=== PATIENT | female | born 1935 | race Caucasian/White ===

== ENCOUNTER 2020-11-20 06:47 | Inpatient (IN) | payer MEDICARE, BC ==
[2020-11-20] MEDS ORDERED: Ondansetron 4 MG/2 ML SDV ONE (07:19)
[2020-11-20] MEDS ORDERED: Ondansetron 4 MG/2 ML SDV IVPUSH ONE (07:22)
--- NOTE | 2020-11-20 07:28 | EDM.PDOC ---
ED HPI GENERAL MEDICAL PROBLEM - General Chief Complaint: Abdominal Pain Stated Complaint: ABD PAIN VIA [facility] Time Seen by Provider: 11/20/20 07:15 Source of Information: Reports: Patient, Old Records, RN History Limitations: Reports: No Limitations - History of Present Illness INITIAL COMMENTS - FREE TEXT/NARRATIVE: 85 yo female arrives via EMS for diarrhea and vomiting. She took a Dulcolax last early evening due to no BM since last Monday. When she had not had any results by bedtime she took another dose. In the middle of the night she had a large hard stool that was not associated with pain or bleeding. This sectionizer she developed several episodes of small volume vomiting and diarrhea that looks like it may have blood in it. She did eat chili for supper last night and thought the stool looked like it did due to the chili. There has not been a fever. She had severe cramping with her diarrhea this morning so took a dose of dicyclomine. Has a pHx of both colitis and hemorrhoids. Onset: Today Onset Date: 11/20/20 Duration: Hour(s): Location: Reports: Abdomen Quality: Reports: Other (cramping) Severity: Moderate Improves with: Reports: Other (? time) Worsens with: Reports: None Context: Reports: Other (See HPI) Associated Symptoms: Reports: Nausea/Vomiting. Denies: Fever/Chills Treatments BACTERIOLOGIST DAIRY: Reports: Other (see below) (dicyclomine) - Related Data Allergies Allergy/AdvReac Type Severity Reaction Status Date / Time ciprofloxacin Allergy Itching Verified 11/20/20 08:08 Penicillins Allergy Rash Verified 11/20/20 08:08 sulfamethoxazole Allergy Nausea Verified 11/20/20 08:08 [From Bactrim] trimethoprim [From Bactrim] Allergy Nausea Verified 11/20/20 08:08 Home Meds: Home Meds Chondroitin/Glucosamine [Glucosamine-Chondroitin] 1 cap PO DAILY 03/08/14 [History] Diclofenac Sodium [Voltaren] 75 mg PO BID 03/08/14 [History] Levothyroxine 112 mcg PO DAILY 03/08/14 [History] Lisinopril 20 mg PO BID 03/08/14 [History] Lutein/Minerals/Vit A,C & E [Ocuvite] 1 tab PO DAILY 03/08/14 [History] Omeprazole [Prilosec] 20 mg PO BID 03/08/14 [History] Pravastatin [Pravachol] 10 mg PO DAILY 03/08/14 [History] Acetaminophen [Tylenol] 1 tab PO ASDIRECTED 01/05/16 [History] Acetaminophen/Diphenhydramine [Tylenol Pm Ex-Strength Caplet] 1 tab PO BEDTIME PRN 01/05/16 [History] Acetaminophen/HYDROcodone [[place] 325-5 MG] 1 tab PO ASDIRECTED 01/05/16 [History] Acetaminophen/HYDROcodone [[place] 325-5 MG] 1 tab PO Q4H PRN #20 tablet 01/08/16 [Rx] metroNIDAZOLE [Flagyl] 250 mg PO TID #27 tablet 01/08/16 [Rx] Past Medical History HEENT History: Reports: Cataract, Impaired Vision Cardiovascular History: Reports: High Cholesterol, Hypertension Gastrointestinal History: Reports: GERD, Other (See Below) Other Gastrointestinal History: esophageal spasm Genitourinary History: Reports: Urinary Incontinence, UTI, Recurrent Musculoskeletal History: Reports: Back Pain, Chronic, Osteoarthritis Psychiatric History: Reports: Anxiety Endocrine/Metabolic History: Reports: Hypothyroidism Hematologic History: Reports: Blood Transfusion(s) - Infectious Disease History Infectious Disease History: Reports: Chicken Pox, Measles, Mumps, Other (See Below) Other Infectious Disease History: polio - Past Surgical History HEENT Surgical History: Reports: Cataract Surgery GI Surgical History: Reports: Appendectomy, Colonoscopy, Other (See Below) Musculoskeletal Surgical History: Reports: Knee Replacement ED ROS GENERAL - Review of Systems Review Of Systems: See Below Constitutional: Reports: No Symptoms HEENT: Reports: No Symptoms Respiratory: Reports: No Symptoms Cardiovascular: Reports: No Symptoms GI/Abdominal: Reports: Abdominal Pain (cramps), Bloody Stool (possibly?), Diarrhea (this morning x more than one), Nausea, Vomiting. Denies: Distension, Hematemesis : Reports: No Symptoms Musculoskeletal: Reports: No Symptoms Skin: Reports: No Symptoms Neurological: Reports: No Symptoms ED EXAM, GI/ABD - Physical Exam Exam: See Below Exam Limited By: No Limitations General Appearance: Alert, WD/WN, Mild Distress Eyes: Bilateral: Normal Appearance Ears: Normal External Exam, Normal Canal, Hearing Grossly Normal Nose: Normal Inspection, No Blood Throat/Mouth: Normal Inspection, Normal Lips, Normal Oropharynx, Normal Voice, No Airway Compromise Head: Atraumatic, Normocephalic Neck: Normal Inspection Respiratory/Chest: No Respiratory Distress, Lungs Clear, Normal Breath Sounds, No Accessory Muscle Use Cardiovascular: Regular Rate, Rhythm, No Edema GI/Abdominal Exam: Normal Bowel Sounds, Soft, Non-Tender, No Distention Back Exam: Normal Inspection Extremities: Normal Inspection, Normal Range of Motion, Non-Tender, No Pedal Edema Neurological: Alert, Oriented, CN II-XII Intact, Normal Cognition, No Motor/Sensory Deficits Psychiatric: Normal Affect, Normal Mood Skin Exam: Warm, Dry, Intact, Normal Color, No Rash Course - Vital Signs Text/Narrative:: Dr. Rodriguez called @ 0817h Last Recorded V/S: Last Vital Signs Temp 36.3 C 11/20/20 07:50 Pulse 57 L 11/20/20 07:50 Resp 14 11/20/20 07:50 BP 117/47 L 11/20/20 07:50 Pulse Ox 98 11/20/20 07:50 - Orders/Labs/Meds Orders: Active Orders 24 hr Category Date Time Status Lactated Ringers [Ringers, Lactated] 1,000 ml Med 11/20/20 07:30 Active IV ASDIRECTED Medication Orders Lactated Ringer's (Ringers, Lactated) 1,000 mls @ 500 mls/hr IV ASDIRECTED RAFFI Last Admin: 11/20/20 07:55 Dose: 500 mls/hr Documented by: URIAH Labs: Laboratory Tests 11/20/20 11/20/20 Range/Units 07:30 07:30 WBC 10.4 (4.5-11.0) K/uL RBC 4.91 (3.30-5.50) M/uL Hgb 14.4 D (12.0-15.0) g/dL Hct 45.0 (36.0-48.0) % MCV 92 (80-98) fL MCH 29 (27-31) pg MCHC 32 (32-36) % Plt Count 358 (150-400) K/uL Sodium 140 (140-148) mmol/L Potassium 3.6 (3.6-5.2) mmol/L Chloride 101 (100-108) mmol/L Carbon Dioxide 26 (21-32) mmol/L Anion Gap 13.4 (5.0-14.0) mmol/L BUN 19 H D (7-18) mg/dL Creatinine 1.3 H D (0.6-1.0) mg/dL Est Cr Clr Drug Dosing 27.12 mL/min Estimated GFR (MDRD) 39 L (>60) Glucose 103 (74-106) mg/dL Calcium 10.5 H D (8.5-10.1) mg/dL Meds: Medications Generic Name Dose Route Start Last Admin Trade Name Freq PRN Reason Stop Dose Admin Lactated Ringer's 1,000 mls @ 500 mls/hr 11/20/20 07:30 11/20/20 07:55 Ringers, Lactated IV 500 mls/hr ASDIRECTED RAFFI Administration Discontinued Medications Generic Name Dose Route Start Last Admin Trade Name Freq PRN Reason Stop Dose Admin Hydromorphone HCl 0.5 mg 11/20/20 08:09 Hydromorphone 0.5 Mg/0.5 Ml Syringe IVPUSH 11/20/20 08:10 ONETIME ONE Ondansetron HCl Confirm 11/20/20 07:19 Ondansetron 4 Mg/2 Ml Sdv Administered 11/20/20 07:20 Dose 4 mg .ROUTE .STK-MED ONE Ondansetron HCl 4 mg 11/20/20 07:22 11/20/20 07:55 Ondansetron 4 Mg/2 Ml Sdv IVPUSH 11/20/20 07:23 4 mg ONETIME ONE Administration Departure - Departure Time of Disposition: 08:35 Disposition: Admitted As Inpatient 68 Condition: Fair Clinical Impression: Nausea vomiting and diarrhea, Bloody diarrhea, Abdominal cramping - Discharge Information *PRESCRIPTION DRUG MONITORING PROGRAM REVIEWED*: No *COPY OF PRESCRIPTION DRUG MONITORING REPORT IN PATIENT NANDA: No Referrals: PCP,None [Primary Care Provider] - Forms: ED Department Discharge Sepsis Event Note (ED) - Focused Exam Vital Signs: Vital Signs Temp Pulse Resp BP Pulse Ox 11/20/20 07:50 36.3 C 57 L 14 117/47 L 98 - My Orders Last 24 Hours: My Active Orders 11/20/20 07:30 Lactated Ringers [Ringers, Lactated] 1,000 ml IV ASDIRECTED - Assessment/Plan Last 24 Hours: My Active Orders 11/20/20 07:30 Lactated Ringers [Ringers, Lactated] 1,000 ml IV ASDIRECTED
[2020-11-20] MEDS ORDERED: Lactated Ringers 1,000 ML IV SCH (07:30)
[2020-11-20] MEDS ORDERED: HYDROmorphone 0.5 MG/0.5 ML Syringe IVPUSH ONE (08:09)
[2020-11-20] MEDS ORDERED: Meropenem 1 GM in Sodium Chloride 0.9% 100 ML IV SCH (09:00)
--- NOTE | 2020-11-20 09:11 | PCM.HP.2 ---
H&P History of Present Illness - General Date of Service: 11/20/20 Admit Problem/Dx: Admission Diagnosis/Problem Admission Diagnosis/Problem Colitis Source of Information: Patient, Family, Old Records, Provider, RN Notes Reviewed History Limitations: Reports: No Limitations - History of Present Illness Initial Comments - Free Text/Narative: Ms. Brown is an 85-year-old woman who was admitted through the emergency department with abrupt onset of cramping abdominal pain and bloody diarrhea. She had recent difficulty with constipation and did take Dulcolax in the evening prior to the onset of her symptoms. She awoke during the transactional attorney hours with cramping abdominal pain and immediately had bloody diarrhea. She presented to the emergency department this morning, labs are within desired range and vital signs stable. She has had one more bloody stool since arriving in the emergency department. She had a similar episode approximately 5 to 6 years ago that was felt to be related to infectious colitis. Colonoscopy at that time showed no evidence of ischemic colitis and symptoms resolved with antibiotic therapy. CT scan was obtained and shows evidence of pancolitis. 4 Pain Score (Numeric/FACES): 4 - Related Data Allergies/Adverse Reactions: Allergies Allergy/AdvReac Type Severity Reaction Status Date / Time ciprofloxacin Allergy Itching Verified 11/20/20 08:08 Penicillins Allergy Rash Verified 11/20/20 08:08 sulfamethoxazole Allergy Nausea Verified 11/20/20 08:08 [From Bactrim] trimethoprim [From Bactrim] Allergy Nausea Verified 11/20/20 08:08 Home Medications: Home Meds Chondroitin/Glucosamine [Glucosamine-Chondroitin] 1 cap PO DAILY 03/08/14 [History] Levothyroxine 100 mcg PO DAILY 03/08/14 [History] Lisinopril 40 mg PO DAILY 03/08/14 [History] Lutein/Minerals/Vit A,C & E [Ocuvite] 1 tab PO DAILY 03/08/14 [History] Omeprazole [Prilosec] 20 mg PO BID 03/08/14 [History] Pravastatin [Pravachol] 10 mg PO DAILY 03/08/14 [History] Acetaminophen [Tylenol] 1 tab PO ASDIRECTED 01/05/16 [History] Acetaminophen/Diphenhydramine [Tylenol Pm Ex-Strength Caplet] 1 tab PO BEDTIME PRN 01/05/16 [History] Aspirin [Lo-Dose Aspirin EC] 1 tab PO DAILY 11/20/20 [History] Dicyclomine [Bentyl] 1 tab PO QID PRN 11/20/20 [History] LORazepam [Ativan] 1 tab PO DAILY PRN 11/20/20 [History] hydrOXYzine HCL [hydrOXYzine] 1 tab PO TID PRN 11/20/20 [History] hydroCHLOROthiazide [Hydrochlorothiazide] 1 tab PO DAILY 11/20/20 [History] Past Medical History HEENT History: Reports: Cataract, Impaired Vision Cardiovascular History: Reports: High Cholesterol, Hypertension Gastrointestinal History: Reports: GERD, Other (See Below) Other Gastrointestinal History: esophageal spasm Genitourinary History: Reports: Urinary Incontinence, UTI, Recurrent Musculoskeletal History: Reports: Back Pain, Chronic, Osteoarthritis Psychiatric History: Reports: Anxiety Endocrine/Metabolic History: Reports: Hypothyroidism Hematologic History: Reports: Blood Transfusion(s) - Infectious Disease History Infectious Disease History: Reports: Chicken Pox, Measles, Mumps, Other (See Below) Other Infectious Disease History: polio - Past Surgical History HEENT Surgical History: Reports: Cataract Surgery GI Surgical History: Reports: Appendectomy, Colonoscopy, Other (See Below) Other GI Surgeries/Procedures: hemrrhoidectomy 25 years ago Female Surgical History: Reports: Hysterectomy Musculoskeletal Surgical History: Reports: Knee Replacement Social & Family History - Tobacco Use Tobacco Use Status *Q: Never Tobacco User H&P Review of Systems - Review of Systems: Review Of Systems: See Below General: Reports: No Symptoms HEENT: Reports: No Symptoms Pulmonary: Reports: No Symptoms Cardiovascular: Reports: No Symptoms Gastrointestinal: Reports: Abdominal Pain, Diarrhea, Hematochezia, Nausea, Vomiting. Denies: Distension Genitourinary: Reports: No Symptoms Musculoskeletal: Reports: No Symptoms Skin: Reports: No Symptoms Psychiatric: Reports: No Symptoms Neurological: Reports: No Symptoms Hematologic/Lymphatic: Reports: No Symptoms Immunologic: Reports: No Symptoms Exam - Exam Exam: See Below - Vital Signs Vital Signs: Last Vital Signs Temp 97.3 F 11/20/20 07:50 Pulse 57 L 11/20/20 07:50 Resp 14 11/20/20 07:50 BP 117/47 L 11/20/20 07:50 Pulse Ox 98 11/20/20 07:50 Weight: 157 lb - Exam Quality Assessment: DVT Prophylaxis General: Alert, Oriented, Cooperative, Mild Distress HEENT: Conjunctiva Clear, Hearing Intact, Mucosa Moist & [place], Normal Nasal Septum, Posterior Pharynx Clear, Pupils Equal Neck: Supple, Trachea Midline, +2 Carotid Pulse wo Bruit Lungs: Clear to Auscultation, Normal Respiratory Effort Cardiovascular: Regular Rate, Regular Rhythm, Normal S1, Normal S2. No: Systolic Murmur, Diastolic Murmur GI/Abdominal Exam: Soft, No Organomegaly, Tender. No: Distended, Guarding, Rigid, Rebound Back Exam: Normal Inspection, Full Range of Motion Extremities: Non-Tender, No Pedal Edema Skin: Warm, Dry, Intact Neurological: Cranial Nerves Intact, Strength Equal Bilateral, Normal Speech, Normal Tone, Sensation Intact. No: Focal Deficit Neuro Extensive - Mental Status: Alert, Oriented x3, Normal Mood/Affect, Normal Cognition, Memory Intact - Patient Data Lab Results Last 24 hrs: Laboratory Results - last 24 hr 11/20/20 11/20/20 Range/Units 07:30 07:30 WBC 10.4 (4.5-11.0) K/uL RBC 4.91 (3.30-5.50) M/uL Hgb 14.4 D (12.0-15.0) g/dL Hct 45.0 (36.0-48.0) % MCV 92 (80-98) fL MCH 29 (27-31) pg MCHC 32 (32-36) % Plt Count 358 (150-400) K/uL Sodium 140 (140-148) mmol/L Potassium 3.6 (3.6-5.2) mmol/L Chloride 101 (100-108) mmol/L Carbon Dioxide 26 (21-32) mmol/L Anion Gap 13.4 (5.0-14.0) mmol/L BUN 19 H D (7-18) mg/dL Creatinine 1.3 H D (0.6-1.0) mg/dL Est Cr Clr Drug Dosing 27.12 mL/min Estimated GFR (MDRD) 39 L (>60) Glucose 103 (74-106) mg/dL Calcium 10.5 H D (8.5-10.1) mg/dL Result Diagrams: 11/21/20 05:30 11/21/20 05:30 Chas Results Last 24 hrs: Microbiology 11/20/20 08:13 Stool Occult Blood (CHAS) - Final Stool / Feces - Stool, Liquid Sepsis Event Note - Evaluation Sepsis Screening Result: No Definite Risk - Focused Exam Vital Signs: Vital Signs Temp Pulse Resp BP Pulse Ox 11/20/20 07:50 97.3 F 57 L 14 117/47 L 98 *Q Meaningful Use (ADM) - VTE *Q VTE Pharmacological Contraindications *Q: Active Hemorrhage - VTE Risk Assess *Q Each Risk Factor Represents 1 Point: None Total Score 1 Point Risk Factors: 0 Each Risk Factor Represents 2 Points: None Total Score 2 Point Risk Factors: 0 Each Risk Factor Represents 3 Points: Age 75 Years or Greater Total Score 3 Point Risk Factors: 3 Each Risk Factor Represents 5 Points: None Total Score 5 Point Risk Factors: 0 Venous Thromboembolism Risk Factor Score *Q: 3 Problem List Initiated/Reviewed/Updated: Yes Orders Last 24hrs: Active Orders 24 hr Category Date Time Status Patient Status Manage Transfer [TRANSFER] Routine ADT 11/20/20 08:57 Active Abdomen Pelvis w Cont [CT] Stat Exams 11/20/20 08:53 Ordered Lactated Ringers [Ringers, Lactated] 1,000 ml Med 11/20/20 07:30 Active IV ASDIRECTED Meropenem [Merrem] 1 gm Med 11/20/20 09:00 Active Sodium Chloride 0.9% [Normal Saline] 100 ml IV Q8H Resuscitation Status Routine Resus Stat 11/20/20 08:59 Ordered Medication Orders Lactated Ringer's (Ringers, Lactated) 1,000 mls @ 500 mls/hr IV ASDIRECTED RAFFI Last Admin: 11/20/20 07:55 Dose: 500 mls/hr Documented by: URIAH Meropenem 1 gm/ Sodium (Chloride) 100 mls @ 200 mls/hr IV Q8H [facility] Assessment/Plan Comment:: ASSESSMENT AND PLAN COLITIS-likely infectious in nature, no evidence of ischemic colitis at the present time. Associated with cramping abdominal pain and bloody diarrhea. Similar episode 5 to 6 years ago that resolved with antibiotic therapy. -N.p.o. -IV fluids for hydration -IV meropenem, she has allergies to penicillins and Cipro HYPOTHYROIDISM -Continue outpatient thyroid replacement HYPERTENSION -Monitor blood pressure during hospital stay -Continue outpatient antihypertensive therapy MAINTENANCE ISSUES -DVT prophylaxis; SCUDs, hold on anticoagulation because of bleeding -GI prophylaxis; not indicated -Chapa catheter; not indicated -Nutrition; n.p.o. -Nicotine dependence; not required CODE STATUS-FULL CODE ADMISSION STATUS-patient will be admitted to inpatient status, expect at least a 2 night hospital stay for evaluation and management of problems as outlined above. At the time of this admission I do not reasonably expected evaluation and management of this problem will require more than a 96 hour hospital stay. DISPOSITION-anticipate discharge to home after the hospital stay. - Mortality Measure Prognosis:: Good
[2020-11-20] MEDS ORDERED: Iopamidol 612 MG/ML 100 ML Bottle IV PRN (09:23)
[2020-11-20] MEDS ORDERED: Sodium Chloride 0.9% 10 ML Syringe FLUSH PRN ×2 (09:23→10:59)
--- NOTE | 2020-11-20 09:45 | CT ---
Abdomen Pelvis w Cont CLINICAL HISTORY: Cramping, abdominal pain, bloody diarrhea COMPARISON: None. TECHNIQUE: Transverse scans were obtained from the base of the lungs to the pubic symphysis following oral contrast and IV infusion of contrast.Auto dosage reduction and iterative reconstructiontechniques employed. FINDINGS: There is diffuse mucosal thickening and some enhancement through out the colon from cecum to rectum. There is some mild fat stranding around some segments. Small intestinal configuration is nonacute The lung bases are clear. The liver contains a 2.2 x 2.0 x 1.5 cm slightly heterogeneous fairly well-demarcated low-attenuation lesion in the right lobe. There may be some minimal peripheral enhancement. The gallbladder has a normal appearance. The spleen has normal size and shape. The pancreas shows no mass or inflammatory change. The adrenal glands appear normal bilaterally . The kidneys show no mass, stones or hydronephrosis. There is a 1.3 x 1.0 cm cyst in the lower pole. The ureters have a normal course and caliber. The aorta shows some minimal calcified plaque without aneurysm. There is no suspicious retroperitoneal adenopathy. IMPRESSION: Moderate waite colitis 2.2 x 2.0 x 1.5 cm slightly irregular lesion in the right lobe of the liver. This may represent a hemangioma. Liver ultrasound is recommended for further characterization.
[2020-11-20] MEDS ORDERED: LORazepam 0.5 MG Tab PO PRN (10:59)
[2020-11-20] MEDS ORDERED: Ondansetron 4 MG/2 ML SDV IV PRN (10:59)
[2020-11-20] MEDS: Sodium Chloride 0.9% 1,000 ML IV SCH ×2 (11:10→19:23)
[2020-11-20] MEDS ORDERED: Lisinopril 20 MG Tab PO SCH ×2 (12:00→21:00)
[2020-11-20] MEDS: Pravastatin 20 MG Tab PO SCH (14:30)
[2020-11-20] MEDS: Pantoprazole 40 MG Tab.CR PO SCH (14:30)
[2020-11-20] MEDS: Levothyroxine 100 MCG Tab PO SCH (14:30)
[2020-11-20] MEDS: HYDROmorphone 0.5 MG/0.5 ML Syringe IVPUSH PRN ×2 (14:32→21:32)
[2020-11-20] MEDS: Acetaminophen 325 MG Tab PO PRN (17:27)
[2020-11-20] MEDS: Meropenem 1 GM in Sodium Chloride 0.9% 100 ML IV SCH (21:26)
[2020-11-21] MEDS: Sodium Chloride 0.9% 1,000 ML IV SCH (03:41)
[2020-11-21] MEDS: Levothyroxine 100 MCG Tab PO SCH (03:43)
[2020-11-21] MEDS: Acetaminophen 325 MG Tab PO PRN ×2 (07:12→21:31)
[2020-11-21] MEDS: Pantoprazole 40 MG Tab.CR PO SCH (07:28)
[2020-11-21] MEDS: Lisinopril 20 MG Tab PO SCH (08:31)
[2020-11-21] MEDS: Pravastatin 20 MG Tab PO SCH (08:31)
[2020-11-21] MEDS: Meropenem 1 GM in Sodium Chloride 0.9% 100 ML IV SCH ×2 (08:32→21:25)
[2020-11-21] MEDS: Magnesium Oxide 400 MG Tab PO SCH ×2 (09:57→21:27)
[2020-11-21] MEDS: Magnesium Sulfate/Water 2 GM in Premix Bag 1 BAG IV SCH ×2 (09:57→15:26)
[2020-11-21] MEDS ORDERED: Sodium Chloride 0.9% 1,000 ML IV SCH (11:15)
--- NOTE | 2020-11-21 12:51 | PCM.PN ---
- General Info Date of Service: 11/21/20 Subjective Update: Ms. Brown is continued to experience bloody diarrhea through the night and this morning. Vital signs have remained stable and she has been afebrile. Abdominal pain significantly improved from yesterday. Nausea and vomiting have resolved. Functional Status: Reports: Tolerating Diet, Ambulating, Urinating - Review of Systems General: Reports: No Symptoms Pulmonary: Reports: No Symptoms Cardiovascular: Reports: No Symptoms Gastrointestinal: Reports: Diarrhea, Hematochezia. Denies: Abdominal Pain, Difficulty Swallowing, Nausea, Vomiting Genitourinary: Reports: No Symptoms - Patient Data Vitals - Most Recent: Last Vital Signs Temp 97.3 F 11/21/20 07:33 Pulse 78 11/21/20 07:33 Resp 16 11/21/20 07:33 BP 148/63 H 11/21/20 08:31 Pulse Ox 95 11/21/20 07:33 Weight - Most Recent: 157 lb I&O - Last 24 Hours: Intake & Output 11/20/20 11/21/20 11/21/20 22:59 06:59 14:59 Intake Total 922 837 380 Output Total 200 100 Balance 922 637 280 Lab Results Last 24 Hours: Laboratory Results - last 24 hr 11/21/20 11/21/20 Range/Units 05:30 05:30 WBC 10.6 (4.5-11.0) K/uL RBC 4.06 (3.30-5.50) M/uL Hgb 11.9 L D (12.0-15.0) g/dL Hct 37.2 (36.0-48.0) % MCV 92 (80-98) fL MCH 29 (27-31) pg MCHC 32 (32-36) % Plt Count 319 (150-400) K/uL Neut % (Auto) 82 H (36-66) % Lymph % (Auto) 9 L (24-44) % [place] % (Auto) 9 H (2-6) % Eos % (Auto) 0 L (2-4) % Baso % (Auto) 0 (0-1) % Sodium 140 (140-148) mmol/L Potassium 4.0 (3.6-5.2) mmol/L Chloride 104 (100-108) mmol/L Carbon Dioxide 26 (21-32) mmol/L Anion Gap 10.0 (5.0-14.0) mmol/L BUN 12 (7-18) mg/dL Creatinine 1.0 (0.6-1.0) mg/dL Est Cr Clr Drug Dosing 35.26 mL/min Estimated GFR (MDRD) 53 L (>60) Glucose 122 H (74-106) mg/dL Calcium 8.6 D (8.5-10.1) mg/dL Magnesium 1.6 L (1.8-2.4) mg/dL Total Bilirubin 0.5 (0.2-1.0) mg/dL AST 24 (15-37) U/L ALT 31 (12-78) U/L Alkaline Phosphatase 63 (46-116) U/L Total Protein 6.1 L (6.4-8.2) g/dL Albumin 3.0 L (3.4-5.0) g/dL Globulin 3.1 (2.3-3.5) g/dL Albumin/Globulin Ratio 1.0 L (1.2-2.2) Chas Results Last 24 Hours: Microbiology 11/20/20 08:13 Stool Occult Blood (CHAS) - Final Stool / Feces - Stool, Liquid Med Orders - Current: Current Medications Acetaminophen (Acetaminophen 325 Mg Tab) 650 mg PO Q4H PRN PRN Reason: Pain (Mild 1-3)/fever Last Admin: 11/21/20 07:12 Dose: 650 mg Documented by: Hydromorphone HCl (Hydromorphone 0.5 Mg/0.5 Ml Syringe) 0.5 mg IVPUSH Q2H PRN PRN Reason: Pain Last Admin: 11/20/20 21:32 Dose: 0.5 mg Documented by: Meropenem 1 gm/ Sodium (Chloride) 100 mls @ 200 mls/hr IV Q12H [facility] Last Admin: 11/21/20 08:32 Dose: 200 mls/hr Documented by: Magnesium Sulfate 2 gm/ Premix 50 mls @ 25 mls/hr IV Q6H [facility] Stop: 11/21/20 17:59 Last Admin: 11/21/20 09:57 Dose: 25 mls/hr Documented by: Sodium Chloride (Normal Saline) 1,000 mls @ 50 mls/hr IV ASDIRECTED [facility] Levothyroxine Sodium (Levothyroxine 100 Mcg Tab) 100 mcg PO DAILY@0300 [facility] Lisinopril (Lisinopril 20 Mg Tab) 40 mg PO DAILY [facility] Last Admin: 11/21/20 08:31 Dose: 40 mg Documented by: Lorazepam (Lorazepam 0.5 Mg Tab) 0.5 mg PO Q4H PRN PRN Reason: Anxiety Magnesium Oxide (Magnesium Oxide 400 Mg Tab) 400 mg PO BID [facility] Last Admin: 11/21/20 09:57 Dose: 400 mg Documented by: Ondansetron HCl (Ondansetron 4 Mg/2 Ml Sdv) 4 mg IV Q4H PRN PRN Reason: Nausea/Vomiting Pantoprazole Sodium (Pantoprazole 40 Mg Tab.Cr) 40 mg PO ACBREAKFAST [facility] Last Admin: 11/21/20 07:28 Dose: 40 mg Documented by: Pravastatin Sodium (Pravastatin 20 Mg Tab) 10 mg PO DAILY [facility] Last Admin: 11/21/20 08:31 Dose: 10 mg Documented by: Sodium Chloride (Sodium Chloride 0.9% 10 Ml Syringe) 10 ml FLUSH ASDIRECTED PRN PRN Reason: Keep Vein Open Discontinued Medications Hydromorphone HCl (Hydromorphone 0.5 Mg/0.5 Ml Syringe) 0.5 mg IVPUSH ONETIME ONE Stop: 11/20/20 08:10 Last Admin: 11/20/20 09:34 Dose: 0.5 mg Documented by: Lactated Ringer's (Ringers, Lactated) 1,000 mls @ 500 mls/hr IV ASDIRECTED [facility] Last Admin: 11/20/20 07:55 Dose: 500 mls/hr Documented by: Meropenem 1 gm/ Sodium (Chloride) 100 mls @ 200 mls/hr IV Q8H [facility] Last Admin: 11/20/20 09:34 Dose: 200 mls/hr Documented by: Sodium Chloride (Normal Saline) 70 mls @ 3 mls/sec IV ONETIME ONE Stop: 11/20/20 09:24 Last Admin: 11/20/20 09:30 Dose: 3 mls/sec Documented by: Sodium Chloride (Normal Saline) 1,000 mls @ 125 mls/hr IV ASDIRECTED [facility] Last Admin: 11/21/20 03:41 Dose: 125 mls/hr Documented by: Iopamidol (Iopamidol 612 Mg/Ml 100 Ml Bottle) 100 ml IV . DIRECTED PRN PRN Reason: RADIOLOGY EXAM Last Admin: 11/20/20 09:31 Dose: 100 ml Documented by: Levothyroxine Sodium (Levothyroxine 100 Mcg Tab) 100 mcg PO DAILY@0730 [facility] Last Admin: 11/21/20 03:43 Dose: 100 mcg Documented by: Lisinopril (Lisinopril 20 Mg Tab) 20 mg PO BID [facility] Last Admin: 11/20/20 16:25 Dose: Not Given Documented by: Ondansetron HCl (Ondansetron 4 Mg/2 Ml Sdv) Confirm Administered Dose 4 mg .ROUTE .STK-MED ONE Stop: 11/20/20 07:20 Last Admin: 11/20/20 16:25 Dose: Not Given Documented by: Ondansetron HCl (Ondansetron 4 Mg/2 Ml Sdv) 4 mg IVPUSH ONETIME ONE Stop: 11/20/20 07:23 Last Admin: 11/20/20 07:55 Dose: 4 mg Documented by: Sodium Chloride (Sodium Chloride 0.9% 10 Ml Syringe) 10 ml FLUSH ONETIME PRN PRN Reason: PER RADIOLOGY PROTOCOL Last Admin: 11/20/20 09:30 Dose: 10 ml Documented by: - Exam Quality Assessment: DVT Prophylaxis General: Alert, Oriented, Cooperative, Mild Distress Lungs: Clear to Auscultation, Normal Respiratory Effort Cardiovascular: Regular Rate, Regular Rhythm, No Murmurs GI/Abdominal Exam: Soft, Non-Tender, No Organomegaly, No Distention Extremities: Non-Tender, No Pedal Edema - Patient Data Lab Results Last 24 hrs: Laboratory Results - last 24 hr 11/21/20 11/21/20 Range/Units 05:30 05:30 WBC 10.6 (4.5-11.0) K/uL RBC 4.06 (3.30-5.50) M/uL Hgb 11.9 L D (12.0-15.0) g/dL Hct 37.2 (36.0-48.0) % MCV 92 (80-98) fL MCH 29 (27-31) pg MCHC 32 (32-36) % Plt Count 319 (150-400) K/uL Neut % (Auto) 82 H (36-66) % Lymph % (Auto) 9 L (24-44) % [place] % (Auto) 9 H (2-6) % Eos % (Auto) 0 L (2-4) % Baso % (Auto) 0 (0-1) % Sodium 140 (140-148) mmol/L Potassium 4.0 (3.6-5.2) mmol/L Chloride 104 (100-108) mmol/L Carbon Dioxide 26 (21-32) mmol/L Anion Gap 10.0 (5.0-14.0) mmol/L BUN 12 (7-18) mg/dL Creatinine 1.0 (0.6-1.0) mg/dL Est Cr Clr Drug Dosing 35.26 mL/min Estimated GFR (MDRD) 53 L (>60) Glucose 122 H (74-106) mg/dL Calcium 8.6 D (8.5-10.1) mg/dL Magnesium 1.6 L (1.8-2.4) mg/dL Total Bilirubin 0.5 (0.2-1.0) mg/dL AST 24 (15-37) U/L ALT 31 (12-78) U/L Alkaline Phosphatase 63 (46-116) U/L Total Protein 6.1 L (6.4-8.2) g/dL Albumin 3.0 L (3.4-5.0) g/dL Globulin 3.1 (2.3-3.5) g/dL Albumin/Globulin Ratio 1.0 L (1.2-2.2) Result Diagrams: 11/21/20 05:30 11/21/20 05:30 Chas Results Last 24 hrs: Microbiology 11/20/20 08:13 Stool Occult Blood (CHAS) - Final Stool / Feces - Stool, Liquid Sepsis Event Note - Evaluation Sepsis Screening Result: No Definite Risk - Focused Exam Vital Signs: Vital Signs Temp Pulse Resp BP BP Pulse Ox 11/21/20 08:31 148/63 H 11/21/20 07:33 97.3 F 78 16 148/63 H 95 11/21/20 05:33 97.3 F 78 16 149/67 H 98 - Problem List Review Problem List Initiated/Reviewed/Updated: Yes - My Orders Last 24 Hours: My Active Orders 11/20/20 12:00 Pantoprazole [ProTONIX] 40 mg PO ACBREAKFAST Pravastatin [Pravachol] 10 mg PO DAILY 11/20/20 21:00 Meropenem [Merrem] 1 gm Sodium Chloride 0.9% [Normal Saline] 100 ml IV Q12H 11/21/20 Breakfast Clear Liquid Diet [DIET] 11/21/20 09:00 Magnesium Oxide 400 mg PO BID lisinopriL [Prinivil] 40 mg PO DAILY 11/21/20 10:00 Magnesium Sulfate/Water [Magnesium Sulfate in Water 2 GM/50 ML] 2 gm Premix Bag 1 bag IV Q6H 11/21/20 11:15 Sodium Chloride 0.9% [Normal Saline] 1,000 ml IV ASDIRECTED 11/22/20 03:00 Levothyroxine [Synthroid] 100 mcg PO DAILY@0300 11/22/20 05:00 BASIC METABOLIC PANEL,BMP [CHEM] Timed CBC WITH AUTO DIFF [HEME] Timed MAGNESIUM [CHEM] Timed - Plan Plan:: ASSESSMENT AND PLAN COLITIS-likely infectious in nature, no evidence of ischemic colitis at the present time. Associated with cramping abdominal pain and bloody diarrhea. Similar episode 5 to 6 years ago that resolved with antibiotic therapy. -Clear liquid diet -IV fluids for hydration, decrease rate to 50 cc/h -IV meropenem, she has allergies to penicillins and Cipro HYPOTHYROIDISM -Continue outpatient thyroid replacement HYPERTENSION -Monitor blood pressure during hospital stay -Continue outpatient antihypertensive therapy MAINTENANCE ISSUES -DVT prophylaxis; SCUDs, hold on anticoagulation because of bleeding -GI prophylaxis; not indicated -Chapa catheter; not indicated -Nutrition; n.p.o. -Nicotine dependence; not required CODE STATUS-FULL CODE ADMISSION STATUS-patient will be admitted to inpatient status, expect at least a 2 night hospital stay for evaluation and management of problems as outlined above. At the time of this admission I do not reasonably expected evaluation and management of this problem will require more than a 96 hour hospital stay. DISPOSITION-anticipate discharge to home after the hospital stay.
[2020-11-22] MEDS: Levothyroxine 100 MCG Tab PO SCH (03:35)
[2020-11-22] MEDS ORDERED: Potassium Chloride 20 MEQ Tab.ER PO ONE (08:45)
[2020-11-22] MEDS: Pravastatin 20 MG Tab PO SCH (09:16)
[2020-11-22] MEDS: Pantoprazole 40 MG Tab.CR PO SCH (09:17)
[2020-11-22] MEDS: Lisinopril 20 MG Tab PO SCH (09:17)
[2020-11-22] MEDS: Meropenem 1 GM in Sodium Chloride 0.9% 100 ML IV SCH (09:18)
[2020-11-22] MEDS: Magnesium Oxide 400 MG Tab PO SCH ×2 (09:18→20:42)
--- NOTE | 2020-11-22 11:07 | PCM.PN ---
- General Info Date of Service: 11/22/20 Subjective Update: Ms. Brown has improved over the past 24 hours. She is no longer experiencing abdominal pain. Stools remain somewhat loose but no longer bloody. Functional Status: Reports: Tolerating Diet, Ambulating, Urinating - Review of Systems General: Reports: No Symptoms Pulmonary: Reports: No Symptoms Cardiovascular: Reports: No Symptoms Gastrointestinal: Reports: Diarrhea. Denies: Abdominal Pain, Hematochezia, Melena, Nausea, Vomiting - Patient Data Vitals - Most Recent: Last Vital Signs Temp 96.1 F L 11/22/20 07:12 Pulse 60 11/22/20 07:12 Resp 16 11/22/20 07:12 BP 147/68 H 11/22/20 09:17 Pulse Ox 96 11/22/20 07:12 Weight - Most Recent: 163 lb 12.8 oz I&O - Last 24 Hours: Intake & Output 11/21/20 11/22/20 11/22/20 22:59 06:59 14:59 Intake Total 1159 480 280 Output Total 700 200 200 Balance 459 280 80 Lab Results Last 24 Hours: Laboratory Results - last 24 hr 11/22/20 11/22/20 Range/Units 04:05 04:05 WBC 8.1 (4.5-11.0) K/uL RBC 3.63 (3.30-5.50) M/uL Hgb 10.8 L (12.0-15.0) g/dL Hct 33.7 L (36.0-48.0) % MCV 93 (80-98) fL MCH 30 (27-31) pg MCHC 32 (32-36) % Plt Count 281 (150-400) K/uL Add Manual Diff Yes Neutrophils % (Manual) 76 H (36-66) % Band Neutrophils % 2 L (5-11) % Lymphocytes % (Manual) 11 L (24-44) % Monocytes % (Manual) 9 H (2-6) % Eosinophils % (Manual) 2 (2-4) % Sodium 143 (140-148) mmol/L Potassium 3.5 L (3.6-5.2) mmol/L Chloride 106 (100-108) mmol/L Carbon Dioxide 28 (21-32) mmol/L Anion Gap 12.5 (5.0-14.0) mmol/L BUN 6 L (7-18) mg/dL Creatinine 0.9 (0.6-1.0) mg/dL Est Cr Clr Drug Dosing 39.18 mL/min Estimated GFR (MDRD) 60 (>60) Glucose 103 (74-106) mg/dL Calcium 8.3 L (8.5-10.1) mg/dL Magnesium 2.4 D (1.8-2.4) mg/dL Med Orders - Current: Current Medications Acetaminophen (Acetaminophen 325 Mg Tab) 650 mg PO Q4H PRN PRN Reason: Pain (Mild 1-3)/fever Last Admin: 11/21/20 21:31 Dose: 650 mg Documented by: Hydromorphone HCl (Hydromorphone 0.5 Mg/0.5 Ml Syringe) 0.5 mg IVPUSH Q2H PRN PRN Reason: Pain Last Admin: 11/20/20 21:32 Dose: 0.5 mg Documented by: Sodium Chloride (Normal Saline) 1,000 mls @ 50 mls/hr IV ASDIRECTED [facility] Last Admin: 11/21/20 15:25 Dose: 50 mls/hr Documented by: Levothyroxine Sodium (Levothyroxine 100 Mcg Tab) 100 mcg PO DAILY@0300 [facility] Last Admin: 11/22/20 03:35 Dose: 100 mcg Documented by: Lisinopril (Lisinopril 20 Mg Tab) 40 mg PO DAILY [facility] Last Admin: 11/22/20 09:17 Dose: 40 mg Documented by: Lorazepam (Lorazepam 0.5 Mg Tab) 0.5 mg PO Q4H PRN PRN Reason: Anxiety Magnesium Oxide (Magnesium Oxide 400 Mg Tab) 400 mg PO BID [facility] Last Admin: 11/22/20 09:18 Dose: 400 mg Documented by: Ondansetron HCl (Ondansetron 4 Mg/2 Ml Sdv) 4 mg IV Q4H PRN PRN Reason: Nausea/Vomiting Pantoprazole Sodium (Pantoprazole 40 Mg Tab.Cr) 40 mg PO ACBREAKFAST [facility] Last Admin: 11/22/20 09:17 Dose: 40 mg Documented by: Pravastatin Sodium (Pravastatin 20 Mg Tab) 10 mg PO DAILY [facility] Last Admin: 11/22/20 09:16 Dose: 10 mg Documented by: Sodium Chloride (Sodium Chloride 0.9% 10 Ml Syringe) 10 ml FLUSH ASDIRECTED PRN PRN Reason: Keep Vein Open Discontinued Medications Hydromorphone HCl (Hydromorphone 0.5 Mg/0.5 Ml Syringe) 0.5 mg IVPUSH ONETIME ONE Stop: 11/20/20 08:10 Last Admin: 11/20/20 09:34 Dose: 0.5 mg Documented by: Lactated Ringer's (Ringers, Lactated) 1,000 mls @ 500 mls/hr IV ASDIRECTED [facility] Last Admin: 11/20/20 07:55 Dose: 500 mls/hr Documented by: Meropenem 1 gm/ Sodium (Chloride) 100 mls @ 200 mls/hr IV Q8H [facility] Last Admin: 11/20/20 09:34 Dose: 200 mls/hr Documented by: Sodium Chloride (Normal Saline) 70 mls @ 3 mls/sec IV ONETIME ONE Stop: 11/20/20 09:24 Last Admin: 11/20/20 09:30 Dose: 3 mls/sec Documented by: Sodium Chloride (Normal Saline) 1,000 mls @ 125 mls/hr IV ASDIRECTED [facility] Last Admin: 11/21/20 03:41 Dose: 125 mls/hr Documented by: Meropenem 1 gm/ Sodium (Chloride) 100 mls @ 200 mls/hr IV Q12H [facility] Last Admin: 11/22/20 09:18 Dose: 200 mls/hr Documented by: Magnesium Sulfate 2 gm/ Premix 50 mls @ 25 mls/hr IV Q6H [facility] Stop: 11/21/20 17:59 Last Admin: 11/21/20 15:26 Dose: 25 mls/hr Documented by: Iopamidol (Iopamidol 612 Mg/Ml 100 Ml Bottle) 100 ml IV . DIRECTED PRN PRN Reason: RADIOLOGY EXAM Last Admin: 11/20/20 09:31 Dose: 100 ml Documented by: Levothyroxine Sodium (Levothyroxine 100 Mcg Tab) 100 mcg PO DAILY@0730 [facility] Last Admin: 11/21/20 03:43 Dose: 100 mcg Documented by: Lisinopril (Lisinopril 20 Mg Tab) 20 mg PO BID [facility] Last Admin: 11/20/20 16:25 Dose: Not Given Documented by: Ondansetron HCl (Ondansetron 4 Mg/2 Ml Sdv) Confirm Administered Dose 4 mg .ROUTE .STK-MED ONE Stop: 11/20/20 07:20 Last Admin: 11/20/20 16:25 Dose: Not Given Documented by: Ondansetron HCl (Ondansetron 4 Mg/2 Ml Sdv) 4 mg IVPUSH ONETIME ONE Stop: 11/20/20 07:23 Last Admin: 11/20/20 07:55 Dose: 4 mg Documented by: Potassium Chloride (Potassium Chloride 20 Meq Tab.Er) 40 meq PO ONETIME ONE Stop: 11/22/20 08:46 Last Admin: 11/22/20 09:16 Dose: 40 meq Documented by: Sodium Chloride (Sodium Chloride 0.9% 10 Ml Syringe) 10 ml FLUSH ONETIME PRN PRN Reason: PER RADIOLOGY PROTOCOL Last Admin: 11/20/20 09:30 Dose: 10 ml Documented by: - Exam Quality Assessment: DVT Prophylaxis General: Alert, Oriented, Cooperative, Mild Distress Lungs: Clear to Auscultation, Normal Respiratory Effort Cardiovascular: Regular Rate, Regular Rhythm, No Murmurs GI/Abdominal Exam: Soft, Non-Tender, No Organomegaly, No Distention Extremities: Non-Tender, No Pedal Edema - Patient Data Lab Results Last 24 hrs: Laboratory Results - last 24 hr 11/22/20 11/22/20 Range/Units 04:05 04:05 WBC 8.1 (4.5-11.0) K/uL RBC 3.63 (3.30-5.50) M/uL Hgb 10.8 L (12.0-15.0) g/dL Hct 33.7 L (36.0-48.0) % MCV 93 (80-98) fL MCH 30 (27-31) pg MCHC 32 (32-36) % Plt Count 281 (150-400) K/uL Add Manual Diff Yes Neutrophils % (Manual) 76 H (36-66) % Band Neutrophils % 2 L (5-11) % Lymphocytes % (Manual) 11 L (24-44) % Monocytes % (Manual) 9 H (2-6) % Eosinophils % (Manual) 2 (2-4) % Sodium 143 (140-148) mmol/L Potassium 3.5 L (3.6-5.2) mmol/L Chloride 106 (100-108) mmol/L Carbon Dioxide 28 (21-32) mmol/L Anion Gap 12.5 (5.0-14.0) mmol/L BUN 6 L (7-18) mg/dL Creatinine 0.9 (0.6-1.0) mg/dL Est Cr Clr Drug Dosing 39.18 mL/min Estimated GFR (MDRD) 60 (>60) Glucose 103 (74-106) mg/dL Calcium 8.3 L (8.5-10.1) mg/dL Magnesium 2.4 D (1.8-2.4) mg/dL Result Diagrams: 11/22/20 04:05 11/22/20 04:05 Sepsis Event Note - Evaluation Sepsis Screening Result: No Definite Risk - Focused Exam Vital Signs: Vital Signs Temp Pulse Resp BP BP BP Pulse Ox 11/22/20 09:17 147/68 H 11/22/20 07:12 96.1 F L 60 16 147/68 H 96 11/22/20 03:00 95.7 F L 61 16 119/50 L 95 - Problem List Review Problem List Initiated/Reviewed/Updated: Yes - My Orders Last 24 Hours: My Active Orders 11/21/20 11:15 Sodium Chloride 0.9% [Normal Saline] 1,000 ml IV ASDIRECTED 11/22/20 03:00 Levothyroxine [Synthroid] 100 mcg PO DAILY@0300 11/22/20 Breakfast Soft Diet [DIET] 11/22/20 11:15 Ciprofloxacin [Ciprofloxacin HCl] 500 mg PO BID metroNIDAZOLE 500 mg PO Q8H 11/23/20 05:11 POTASSIUM,K [CHEM] AM - Plan Plan:: ASSESSMENT AND PLAN COLITIS-likely infectious in nature, no evidence of ischemic colitis at the present time. Symptomatically improved, no abdominal pain, stools are still loose but no longer bloody -Soft low residue diet -Saline lock IV -Switch to oral antibiotic therapy with metronidazole and cefdinir HYPOTHYROIDISM -Continue outpatient thyroid replacement HYPERTENSION -Monitor blood pressure during hospital stay -Continue outpatient antihypertensive therapy MAINTENANCE ISSUES -DVT prophylaxis; SCUDs, hold on anticoagulation because of bleeding -GI prophylaxis; not indicated -Chapa catheter; not indicated -Nutrition; n.p.o. -Nicotine dependence; not required CODE STATUS-FULL CODE ADMISSION STATUS-patient will be admitted to inpatient status, expect at least a 2 night hospital stay for evaluation and management of problems as outlined above. At the time of this admission I do not reasonably expected evaluation and management of this problem will require more than a 96 hour hospital stay. DISPOSITION-anticipate discharge to home after the hospital stay.
[2020-11-22] MEDS ORDERED: Ciprofloxacin 500 MG Tab PO SCH (11:15)
[2020-11-22] MEDS: metroNIDAZOLE 250 MG Tab PO SCH ×2 (13:36→21:17)
[2020-11-22] MEDS: Acetaminophen 325 MG Tab PO PRN (20:27)
[2020-11-22] MEDS: Cefdinir 300 MG Cap PO SCH (20:42)
[2020-11-23] MEDS: Levothyroxine 100 MCG Tab PO SCH (03:28)
[2020-11-23] MEDS: metroNIDAZOLE 250 MG Tab PO SCH (05:05)
[2020-11-23] MEDS: Pantoprazole 40 MG Tab.CR PO SCH (07:39)
[2020-11-23] MEDS: Pravastatin 20 MG Tab PO SCH (09:43)
[2020-11-23] MEDS: Cefdinir 300 MG Cap PO SCH (09:43)
[2020-11-23] MEDS: Lisinopril 20 MG Tab PO SCH (09:43)
[2020-11-23] MEDS: Magnesium Oxide 400 MG Tab PO SCH (09:43)
[2020-11-23 10:17] VITALS: BP 139/60; PULSE 64
--- NOTE | 2020-11-23 11:26 | PCM.DCSUM1 ---
Discharge Summary - Hospital Course Brief History: 85-year-old female with remote history of colitis and hypertension who presented with abdominal pain, nausea and bloody diarrhea. She was admitted for management of pancolitis with rectal bleeding. Diagnosis: Stroke: No - Discharge Data Discharge Date: 11/23/20 Discharge Disposition: Home, Self-Care 01 Condition: Good - Referral to Home Health Primary Care Physician: PCP None - Discharge Diagnosis/Problem(s) (1) Colitis presumed infectious SNOMED Code(s): 19670411 ICD Code: A09 - INFECTIOUS GASTROENTERITIS AND COLITIS, UNSPECIFIED Status: Acute (2) Rectal bleeding SNOMED Code(s): 19198155 ICD Code: K62.5 - HEMORRHAGE OF ANUS AND RECTUM Status: Acute - Patient Summary/Data Hospital Course: Windy presented to the emergency room with abdominal pain, nausea, diarrhea and some rectal bleeding. Work-up in the emergency room suggested a pancolitis which was thought to be related to a bacterial infection. She was started on antibiotics and she was admitted to the hospital for further management. Her hospital course was uncomplicated and she made steady progress throughout the course of the hospital stay. Her diarrhea improved and did resolve. She did not have significant rectal bleeding throughout the course of the hospital stay. Her abdominal pain has improved steadily and nearly resolved. The plan is for her to continue oral antibiotics after hospital discharge. She will be on the GI soft/low residual diet for about a week before increasing to her regular diet. She is stable and safe for discharge along with outpatient management at this time. - Patient Instructions Diet: GI Soft/Low Residue/Low Fiber (for one week ) Activity: As Tolerated Showering/Bathing: May Shower Notify Provider of: Fever, Increased Pain Other/Special Instructions: 1. You were in the hospital for management of colitis that we suspect was caused by a bacteria though we did not determine a causative bacteria. Your condition has been improving with antibiotic therapy. I do recommend additional antibiotic therapy after your discharge home. Please take metronidazole 500 mg 3 times daily for 5 days. Also take cefdinir 300 mg twice daily for 5 days. Your first dose of the metronidazole will be due this afternoon and your first dose of the cefdinir will be due tonight. I also recommend that you take a probiotic capsule or a yogurt with a probiotic in it to help restore normal gut pineda. You should have a soft diet with low fiber for the next 1 week and then you may resume your normal diet. 2. Continue your usual home medications as previously prescribed. 3. Follow up if your symptoms do not continue to get better or if they get worse - Discharge Plan *PRESCRIPTION DRUG MONITORING PROGRAM REVIEWED*: No *COPY OF PRESCRIPTION DRUG MONITORING REPORT IN PATIENT NANDA: No Prescriptions/Med Rec: metroNIDAZOLE [Metronidazole] 500 mg PO TID #15 tablet Cefdinir [Omnicef] 300 mg PO BID #10 cap Home Medications: Home Meds Chondroitin/Glucosamine [Glucosamine-Chondroitin] 1 cap PO DAILY 03/08/14 [History] Levothyroxine 100 mcg PO DAILY 03/08/14 [History] Lisinopril 40 mg PO DAILY 03/08/14 [History] Lutein/Minerals/Vit A,C & E [Ocuvite] 1 tab PO DAILY 03/08/14 [History] Omeprazole [Prilosec] 20 mg PO BID 03/08/14 [History] Pravastatin [Pravachol] 10 mg PO DAILY 03/08/14 [History] Acetaminophen [Tylenol] 1 tab PO ASDIRECTED 01/05/16 [History] Acetaminophen/Diphenhydramine [Tylenol Pm Ex-Strength Caplet] 1 tab PO BEDTIME PRN 01/05/16 [History] Aspirin [Lo-Dose Aspirin EC] 1 tab PO DAILY 11/20/20 [History] Dicyclomine [Bentyl] 1 tab PO QID PRN 11/20/20 [History] LORazepam [Ativan] 1 tab PO DAILY PRN 11/20/20 [History] hydrOXYzine HCL [hydrOXYzine] 1 tab PO TID PRN 11/20/20 [History] hydroCHLOROthiazide [Hydrochlorothiazide] 1 tab PO DAILY 11/20/20 [History] Cefdinir [Omnicef] 300 mg PO BID #10 cap 11/23/20 [Rx] metroNIDAZOLE [Metronidazole] 500 mg PO TID #15 tablet 11/23/20 [Rx] Oxygen Therapy Mode: Room Air Patient Handouts: Cefdinir Capsules, Colitis, Metronidazole tablets or capsules Referrals: PCP,None [Primary Care Provider] - (Follow-up as needed if your symptoms do not continue to get better or if they get worse) - Discharge Summary/Plan Comment DC Time >30 min.: No - Patient Data Vitals - Most Recent: Last Vital Signs Temp 35.8 C L 11/23/20 10:15 Pulse 64 11/23/20 10:15 Resp 18 11/23/20 10:15 BP 139/60 11/23/20 10:15 Pulse Ox 95 11/23/20 10:15 Weight - Most Recent: 76.4 kg I&O - Last 24 hours: Intake & Output 11/22/20 11/23/20 11/23/20 22:59 06:59 14:59 Intake Total 936 676 2808 Output Total 700 100 600 Balance 20 140 480 Lab Results - Last 24 hrs: Laboratory Results - last 24 hr 11/23/20 Range/Units 04:15 Potassium 4.2 (3.6-5.2) mmol/L Med Orders - Current: Current Medications Acetaminophen (Acetaminophen 325 Mg Tab) 650 mg PO Q4H PRN PRN Reason: Pain (Mild 1-3)/fever Last Admin: 11/22/20 20:27 Dose: 650 mg Documented by: Cefdinir (Cefdinir 300 Mg Cap) 300 mg PO BID [facility] Last Admin: 11/23/20 09:43 Dose: 300 mg Documented by: Hydromorphone HCl (Hydromorphone 0.5 Mg/0.5 Ml Syringe) 0.5 mg IVPUSH Q2H PRN PRN Reason: Pain Last Admin: 11/20/20 21:32 Dose: 0.5 mg Documented by: Sodium Chloride (Normal Saline) 1,000 mls @ 50 mls/hr IV ASDIRECTED [facility] Last Admin: 11/21/20 15:25 Dose: 50 mls/hr Documented by: Levothyroxine Sodium (Levothyroxine 100 Mcg Tab) 100 mcg PO DAILY@0300 [facility] Last Admin: 11/23/20 03:28 Dose: 100 mcg Documented by: Lisinopril (Lisinopril 20 Mg Tab) 40 mg PO DAILY [facility] Last Admin: 11/23/20 09:43 Dose: 40 mg Documented by: Lorazepam (Lorazepam 0.5 Mg Tab) 0.5 mg PO Q4H PRN PRN Reason: Anxiety Magnesium Oxide (Magnesium Oxide 400 Mg Tab) 400 mg PO BID [facility] Last Admin: 11/23/20 09:43 Dose: 400 mg Documented by: Metronidazole (Metronidazole 250 Mg Tab) 500 mg PO Q8H [facility] Last Admin: 11/23/20 05:05 Dose: 500 mg Documented by: Ondansetron HCl (Ondansetron 4 Mg/2 Ml Sdv) 4 mg IV Q4H PRN PRN Reason: Nausea/Vomiting Pantoprazole Sodium (Pantoprazole 40 Mg Tab.Cr) 40 mg PO ACBREAKFAST [facility] Last Admin: 11/23/20 07:39 Dose: 40 mg Documented by: Pravastatin Sodium (Pravastatin 20 Mg Tab) 10 mg PO DAILY [facility] Last Admin: 11/23/20 09:43 Dose: 10 mg Documented by: Sodium Chloride (Sodium Chloride 0.9% 10 Ml Syringe) 10 ml FLUSH ASDIRECTED PRN PRN Reason: Keep Vein Open Discontinued Medications Ciprofloxacin (Ciprofloxacin 500 Mg Tab) 500 mg PO BID [facility] Hydromorphone HCl (Hydromorphone 0.5 Mg/0.5 Ml Syringe) 0.5 mg IVPUSH ONETIME ONE Stop: 11/20/20 08:10 Last Admin: 11/20/20 09:34 Dose: 0.5 mg Documented by: Lactated Ringer's (Ringers, Lactated) 1,000 mls @ 500 mls/hr IV ASDIRECTED [facility] Last Admin: 11/20/20 07:55 Dose: 500 mls/hr Documented by: Meropenem 1 gm/ Sodium (Chloride) 100 mls @ 200 mls/hr IV Q8H [facility] Last Admin: 11/20/20 09:34 Dose: 200 mls/hr Documented by: Sodium Chloride (Normal Saline) 70 mls @ 3 mls/sec IV ONETIME ONE Stop: 11/20/20 09:24 Last Admin: 11/20/20 09:30 Dose: 3 mls/sec Documented by: Sodium Chloride (Normal Saline) 1,000 mls @ 125 mls/hr IV ASDIRECTED [facility] Last Admin: 11/21/20 03:41 Dose: 125 mls/hr Documented by: Meropenem 1 gm/ Sodium (Chloride) 100 mls @ 200 mls/hr IV Q12H [facility] Last Admin: 11/22/20 09:18 Dose: 200 mls/hr Documented by: Magnesium Sulfate 2 gm/ Premix 50 mls @ 25 mls/hr IV Q6H [facility] Stop: 11/21/20 17:59 Last Admin: 11/21/20 15:26 Dose: 25 mls/hr Documented by: Iopamidol (Iopamidol 612 Mg/Ml 100 Ml Bottle) 100 ml IV . DIRECTED PRN PRN Reason: RADIOLOGY EXAM Last Admin: 11/20/20 09:31 Dose: 100 ml Documented by: Levothyroxine Sodium (Levothyroxine 100 Mcg Tab) 100 mcg PO DAILY@0730 [facility] Last Admin: 11/21/20 03:43 Dose: 100 mcg Documented by: Lisinopril (Lisinopril 20 Mg Tab) 20 mg PO BID [facility] Last Admin: 11/20/20 16:25 Dose: Not Given Documented by: Ondansetron HCl (Ondansetron 4 Mg/2 Ml Sdv) Confirm Administered Dose 4 mg .FARAZ BRADLEYK-MED ONE Stop: 11/20/20 07:20 Last Admin: 11/20/20 16:25 Dose: Not Given Documented by: Ondansetron HCl (Ondansetron 4 Mg/2 Ml Sdv) 4 mg IVPUSH ONETIME ONE Stop: 11/20/20 07:23 Last Admin: 11/20/20 07:55 Dose: 4 mg Documented by: Potassium Chloride (Potassium Chloride 20 Meq Tab.Er) 40 meq PO ONETIME ONE Stop: 11/22/20 08:46 Last Admin: 11/22/20 09:16 Dose: 40 meq Documented by: Sodium Chloride (Sodium Chloride 0.9% 10 Ml Syringe) 10 ml FLUSH ONETIME PRN PRN Reason: PER RADIOLOGY PROTOCOL Last Admin: 11/20/20 09:30 Dose: 10 ml Documented by: *Q Meaningful Use (DIS) - VTE *Q VTE Pharmacological Contraindications *Q: Active Hemorrhage
== END 2020-11-23 11:48 | disposition home or self-care (01) | DRG 386 ==
LOC: JP.ED 06:47 → JP.MS 08:57
PROVIDERS: ADMIT Hospitalist; ATTEND Internal Medicine
DX: R11.2 Nausea with vomiting, unspecified (principal); K92.1 Melena; R10.9 Unspecified abdominal pain; R19.7 Diarrhea, unspecified; K51.00 Ulcerative (chronic) pancolitis without complications; K62.5 Hemorrhage of anus and rectum; H54.7 Unspecified visual loss; E78.00 Pure hypercholesterolemia, unspecified; I10 Essential (primary) hypertension; K21.9 Gastro-esophageal reflux disease without esophagitis; R32 Unspecified urinary incontinence; G89.29 Other chronic pain; M54.9 Dorsalgia, unspecified; M19.90 Unspecified osteoarthritis, unspecified site; F41.9 Anxiety disorder, unspecified; E03.9 Hypothyroidism, unspecified; Z96.659 Presence of unspecified artificial knee joint; Z86.19 Personal history of other infectious and parasitic diseases; Z98.49 Cataract extraction status, unspecified eye; Z90.49 Acquired absence of other specified parts of digestive tract; Z90.710 Acquired absence of both cervix and uterus; Z79.890 Hormone replacement therapy; Z79.899 Other long term (current) drug therapy; Z87.440 Personal history of urinary (tract) infections; Z79.82 Long term (current) use of aspirin; Z79.84 Long term (current) use of oral hypoglycemic drugs; Z88.0 Allergy status to penicillin; Z88.1 Allergy status to other antibiotic agents; Z88.2 Allergy status to sulfonamides; K22.4 Dyskinesia of esophagus
CPT/HCPCS: 36415; 80048; 82272; 85027; 99284; J2405; J7120; 74177; 74177-26; 80053; 83735; 84132; 85025; 96374; 99285-25; A9270-GY; J1170; J2185; J3475; J7030; Q9967